=== PATIENT | male | born 1980 | race Caucasian/White ===

== ENCOUNTER 2016-05-23 17:58 | Emergency (ER) | payer OTHER ==
[2016-05-23 18:09] VITALS: BP 148/86; TEMP 98.2; O2SAT 96
--- NOTE | 2016-05-23 18:55 | DX ---
Left 3rd finger series 3 views 1824 hours. History: Stubbed 3rd digit scrubbing floors. Findings: Osseous structures appear to be intact without evidence of fracture. Joint spaces are girish l. Soft tissues are unremarkable. Impression: 1. Normal left 3rd finger series.
--- NOTE | 2016-05-23 19:03 | EDPHY ---
H & P Stated Complaint: POSS L FINGER DISLOCATION Time Seen by Provider: 05/23/16 18:08 HPI/ROS: Chief complaint: Left middle finger injury History of present illness: 36-year-old male presents to the emergency department for left middle finger injury. Prior to arrival he jammed it. Since then he is having difficulty moving especially extending it. He denies open wounds. He denies paresthesias or abnormal coolness. No other trauma reported. - Personal History Current Tetanus/Diphtheria Vaccine: Yes - Medical/Surgical History Hx Asthma: No Hx Chronic Respiratory Disease: No Hx Diabetes: No Hx Cardiac Disease: No Hx Renal Disease: No Hx Cirrhosis: No Hx Alcoholism: No Hx HIV/AIDS: No Hx Splenectomy or Spleen Trauma: No - Social History Smoking Status: Never smoked - Physical Exam Exam: General: Alert, nontoxic Skin: No lesions consistent with trauma the left middle finger Musculoskeletal: Patient can flex his left middle finger in the MCP, PIP and the DIP joint well. He can extend his finger in the MCP and PIP joint but is having difficulty extending in the DIP joint. Vascular: Capillary refill brisk in the left middle finger. Neurologic: Sensation intact throughout the left middle finger. Constitutional: Initial Vital Signs Temperature (C) 36.8 C 05/23/16 18:07 Heart Rate 86 05/23/16 18:07 Respiratory Rate 16 05/23/16 18:07 Blood Pressure 148/86 H 05/23/16 18:07 O2 Sat (%) 96 05/23/16 18:07 O2 Delivery Mode Room Air Allergies/Adverse Reactions: No Known Allergies Allergy (Unverified 05/23/16 18:06) Home Medications: Medication Instructions Recorded NK [No Known Home Meds] 05/23/16 Medical Decision Making - Diagnostics Imaging: X-ray series of the left middle finger is negative Procedures: Procedure: Splint placement. A finger splint was applied. After application of the splint I returned and re- examined the patient. The splint was adequately immobilizing the joint and distal to the splint the patient's circulation and sensation was intact. ED Course/Re-evaluation: Patient seen under the supervision of my secondary supervising physician Dr. Aj Sands. Patient presents to the emergency department for left middle finger injury. The finger is neurovascularly intact. X-rays negative. Exam is concerning for mallet finger. He is splinted. He is referred to Hand surgery for further evaluation and care. Return precautions given. Patient voiced understanding and agreement with plan. Departure - Departure Disposition: Home, Routine, Self-Care Clinical Impression: Mallet finger Qualifiers: Qualifier Code: (M20.012) Mallet finger of left finger(s) Condition: Good Instructions: Jammed Finger (ED) Additional Instructions: Follow-up with Hand surgery next week for recheck If symptoms worsen or new symptoms develop return to the emergency department for recheck Referrals: Darius Sibley [Primary Care Provider] - As per Instructions Marlon Hoskins MD [Medical Doctor] - As per Instructions
[2016-05-23 19:21] VITALS: PULSE 80; RESP 14
== END 2016-05-23 19:20 | disposition home or self-care (01) ==
DX: M20.012 Mallet finger of left finger(s) (principal); W23.1XXA Caught, crushed, jammed, or pinched between stationary objects, initial encounter
CPT/HCPCS: L3925